=== PATIENT | male | born 1990 | race Caucasian/White ===

== ENCOUNTER → 2024-04-14 15:23 | Outpatient (REF) | payer OTHER, SELFPAY | LOC: RCS 15:23 | PROVIDERS: ATTENDING PHYSICIAN Internal Medicine Cardiovascular Disease; FAMILY PHYSICIAN Internal Medicine | DX: I10 Essential (primary) hypertension (principal) | CPT/HCPCS: 93306 ==

== ENCOUNTER 2025-06-25 23:29 | Inpatient (IN) | payer OTHER, SELFPAY ==
[2025-06-25 16:54] VITALS: BP 136/85
[2025-06-25 17:25] LABS: Urine Character Clear (Clear)
[2025-06-25 17:28] LABS: Hematocrit 44.6 % (39.0-52.0); Hemoglobin 15.1 g/dL (13.0-18.0); Mean Corp Hgb Conc. 33.9 g/dL (33.0-37.0); Mean Corpuscular Volume 85.9 fL (80.0-94.0); Nucleated Red Blood Cells % 0 % (-); Platelet Count 200 10^3/uL (130-400); Red Cell Dist. Width 12.3 % (11.5-14.5)
[2025-06-25 17:44] LABS: ALT (SGPT) 19 U/L (0-50); AST (SGOT) 23 U/L (17-59); Albumin 4.9 g/dl (3.5-5.0); Alkaline Phosphatase 58 U/L (38-126); Blood Urea Nitrogen 17 mg/dl (9-20); Calcium 9.2 mg/dl (8.4-10.2); Carbon Dioxide 27 mmol/L (22-30); Chloride 105 mmol/L (98-107); Glucose 100 mg/dl (70-99); Lipase 182 U/L (23-300); Potassium 4.1 mmol/L (3.5-5.1); Sodium 139 mmol/L (135-145); Total Protein 7.6 g/dl (6.3-8.2); eGFR > 60.00
--- NOTE | 2025-06-25 20:01 | ED.GENMED ---
History of Present Illness
General
Chief Complaint: Abdominal Pain
Source: patient
Exam Limitations: none
Time Seen by Provider: 06/25/25 19:46
History of Present Illness
History of Present Illness:
35yoM with a history of hypertension presenting with his father for evaluation of abdominal pain. Symptoms began yesterday afternoon with a sharp pain in his periumbilical region which went down to his right lower quadrant. He continues to have
pain in today specifically with palpation. He also reports some nausea and decreased appetite. No associated testicular pain, dysuria, constipation, diarrhea, fevers, vomiting. He is worried because his mother recently had appendicitis.
Past History
Past History
ED Past Medical History: None
ED Past Surgical History: None
Social History
Tobacco: Non-smoker
Alcohol: Occasional
Drug: None
Personal: Single
Living: with family
Employment: Employed
Phy Exam
General Physical Exam
General Presentation: well appearing and no apparent distress
General Skin: warm and dry
General Habitus: normal
General Mental: alert
ENT Exam
ENT Exam: normocephalic
Pulmonary Exam
Pulmonary Exam: no respiratory distress
Gastrointestinal Exam
Gastrointestinal Exam: soft, non distended and other (+Tenderness in RLQ and suprapubic region. Abdomen soft, non-distended. No rebound or guarding.)
Neurological Exam
Neurological Exam: alert
Kaveh Coma Scale
Eye Opening: Spontaneous
Verbal Response: Oriented
Motor Response: Obeys Commands
GCS Total Score: 15
Skin Exam
Skin Exam: normal color and warm/dry
Psychiatric Exam
Psychiatric Exam: normal mood/affect
Course
Orders/Labs/Results
Orders:
Orders
06/25/25 Dinner
NPO
Allow oral meds: Yes
Allow clear liquids: No
06/25/25 17:12
Complete Blood Count/With Diff Urgent
Comprehensive Metabolic Panel Urgent
Lipase Urgent
Urinalysis Reflex To Culture Urgent
Date Specimen was Collected: 06/25/25
Time Specimen was Collected: 16:57
06/25/25 20:01
CT Abd/pelvis W Iv Cont Urgent
Comment:
Reason For Exam: RLQ pain
06/25/25 22:31
0.9% Sodium Chloride 1000 ml [Nss] 1,000 ml IV BOLUS
06/25/25 23:04
Code Status As Directed
Resuscitation Status: Full Code
Complete Blood Count/No Diff Routine
Activity As Directed
Activity Level: Out of Bed- Ad Zayda
Vital Signs As Directed
Frequency: Per unit guidelines
06/25/25 23:15
0.9% Sodium Chloride 1000 ml [Nss] 1,000 ml IV 100 mls/hr
06/26/25 06:00
Basic Metabolic Panel IN AM
Abnormal Lab Results
06/25/25
17:12
Glucose 100 H mg/dl
(70-99)
06/25/25 17:12
Vital Signs
Initial and Last Documented VS:
Initial Vital Signs
Temp Pulse Resp BP Pulse Ox
97.5 F 82 16 136/85 99
06/25/25 16:54 06/25/25 16:54 06/25/25 16:54 06/25/25 16:54 06/25/25 16:54
Last Documented Vital Signs
Temp Pulse Resp BP Pulse Ox
97.5 F 82 16 136/85 99
06/25/25 16:54 06/25/25 16:54 06/25/25 16:54 06/25/25 16:54 06/25/25 20:02
MDM/Problems Addressed
Differential Diagnosis Includes:
35yoM here with RLQ pain x 1 day. Associated with nausea. VSS. He is well appearing in no distress. No signs of peritonitis on abdominal exam. Differential diagnosis includes but is not limited to: appendicitis, mesenteric adenitis, colitis,
musculoskeletal
Initial ED plan: Labs obtained in triage are unremarkable including normal white count. Will proceed with CT abdomen. He declines analgesics.
*Pulse Oximetry
SaO2: 99
Oxygen Mode of Delivery: Room air
Patient hypoxic: no (99%)
*Critical Care Note
Total Time (30-74mins, 75-104mins- exclusive of procedures): Not Applicable
Update Note
Update Note:
CT shows findings suspicious for low grade appendicitis. Case discussed with Dr. Reyes who recommends holding off on antibiotics for now. Patient admitted to the general surgery service for further management.
ED Attending Note
-
Portions of this chart may have been created with voice recognition software.� Occasional wrong word or��sound alike� substitutions may have occurred due to the inherent limitations of voice recognition software.
Discharge Plan
Departure
Patient Disposition: Admit
Date of Disposition: 06/25/25
Time of Disposition: 22:25
Presentation/result/management discussed w/ accepting MD/DO: Dr. Reyes
Discharge Problem:
Acute appendicitis
Referrals:
Wilver Ramires MD [Family Provider, Internal Medicine]
Interventions
Interventions:
*Risk Screen - Suicide Last Done: 06/25/25 16:54
*General Assessment Last Done: 06/25/25 20:10
*Neglect/Abuse Screening Last Done: 06/25/25 16:54
*ED COVID-19 Vaccine History Last Done: 06/25/25 20:10
ZM-Rkcvtp-Ilobeawdnt Assessment Last Done: 06/25/25 20:10
Discharge Date and Time
Print Language: [place]
[2025-06-25 20:12] VITALS: BMI 25.0
[2025-06-25] MEDS: NSS 1000 IV (22:39)
[2025-06-25 23:55] VITALS: BP 144/85; BMI 24.3
[2025-06-26] VITALS (8 sets, daily range): BP systolic 106–147; BP diastolic 45–79
[2025-06-26] MEDS: NSS 1000 IV ×2 (00:03→08:45)
--- NOTE | 2025-06-26 00:15 | HP.FOC2 ---
Addendum entered and electronically signed by Fab Reyes MD 06/26/25 14:14:
35-year-old male with PMH of HTN, aortic coarctation (? he described the issue as a 'kink' in his aorta), and seasonal allergies who presented with 2 days of periumbilical pain that migrated to the right lower quadrant, described it as waxing and
waning in severity, not progressive; WBC 6.8, CT showing subtle abnormality of the appendix; I personally reviewed and interpreted this, appendix is dilated with slight periappendiceal inflammation
AFVSS, ABD soft, nondistended, tender to deep palpation in the RLQ, no rebound or guarding
� Suspicious for acute appendicitis; presentation is not completely typical of acute appendicitis, but radiographically the appendix is dilated and congruent with his abdominal exam; explained the treatment options, including surgery to remove the
appendix versus treatment with antibiotics; explained that it is possible we could get in and the appendix appears normal; if this was the case, I would remove the appendix anyway to remove it from the list of possibilities in the future; antibiotic
treatment is effective but has an elevated recurrence risk, about 20% in the first year; after lengthy discussion, the patient elected to proceed with surgery
� Keep n.p.o. with IVF
� Sent coags and type and screen
� Start IV Zosyn until surgery
� Pain control with IV Dilaudid as needed
Original Note:
Focused History & Physical
Chief Complaint
HPI:
Chief Complaint: abdominal pain
HPI / Indication for Planned Procedure:
35 YOM with PMH HTN presents to [facility] ED with abdominal pain that started yesterday afternoon. Reports pain started in his preiumbilca regaion now down to his right lower qudrant. Patient reports pain to be sharp and tender to palpation. Patiend
denies fever, nausea or vomiting associated with the pain. Last BM today in the ED, + flatus. Last PO intake this afternoon prior to coming to ED - had two croissants.
Relevant Past Medical History: Hypertension
Relevant Social History: ETOH (occational)
Relevant Family History: Negative
Relevant Past Surgical History: Negative
Review of Systems
Review of Pertinent Systems: All Systems Negative Except for the Following Positives (reports right lower quadrant tenderness)
Medication
See Medication form for detailed medications: No
Medication List (including Herbals & OTC):
Losartain potassium 25mg PO HS
Medications Reviewed: Yes
Allergies and Reactions
Patient has Allergies: No
Noted Allergies and Reactions:
Allergy/AdvReac Type Severity Reaction Status Date / Time
No Known Allergies Allergy Verified 06/25/25 16:53
Pertinent Physical Exam
All Other Systems: Negative
Head/Neck: Normal
Lungs: Normal
Heart: Normal
Abdomen: Other (right lower quadrant - tender to palpation)
Extremities: Normal
Neurological: Normal
Diagnosis / Assessment
CT ab/pel
IMPRESSION:
Subtle abnormality of the appendix, as described, suspicious for low-grade appendicitis. No perforation or abscess.
Plan / Procedure
Admit under Dr. Reyes service
#abdominial pain - appendicitis
- NPO
- IVF NS 100cc/hr
- prn pain control
#HTN
- continue home medicine.
#dvt prophylaxis - SCD
Code status - FULL
--- NOTE | 2025-06-26 01:15 | PTCARENOTE ---
Pt admitted to 2105 from ED at 2300, aaox3, denies pain, nausea/vomiting. Admission questions completed, NSS infusing at 100ml/hr as per order. labs sent to lab. Pt oriented to surroundings and call light. Updated on POC and in agreement.
[2025-06-26 01:19] LABS: Hematocrit 38.6 % (39.0-52.0); Hemoglobin 12.8 g/dL (13.0-18.0); Mean Corp Hgb Conc. 33.2 g/dL (33.0-37.0); Mean Corpuscular Volume 88.1 fL (80.0-94.0); Platelet Count 177 10^3/uL (130-400); Red Cell Dist. Width 12.1 % (11.5-14.5)
[2025-06-26 01:41] LABS: Blood Urea Nitrogen 17 mg/dl (9-20); Calcium 8.2 mg/dl (8.4-10.2); Carbon Dioxide 26 mmol/L (22-30); Chloride 107 mmol/L (98-107); Estimated Creatinine Clearance 111 ml/min; Glucose 87 mg/dl (70-99); Potassium 4.4 mmol/L (3.5-5.1); Sodium 138 mmol/L (135-145); eGFR > 60.00
[2025-06-26 06:29] LABS: Hematocrit 39.3 % (39.0-52.0); Hemoglobin 13.1 g/dL (13.0-18.0); Mean Corp Hgb Conc. 33.3 g/dL (33.0-37.0); Mean Corpuscular Volume 87.5 fL (80.0-94.0); Platelet Count 163 10^3/uL (130-400); Red Cell Dist. Width 12.1 % (11.5-14.5)
[2025-06-26] MEDS: ZOSYN 50 IV (08:41)
[2025-06-26 09:39] LABS: INR 1.08; PT 14.3 Sec (11.4-14.6)
[2025-06-26 09:40] LABS: APTT 30.9 Sec (23.4-35.0)
--- NOTE | 2025-06-26 13:12 | W.IMMPOSTOP ---
Addendum entered and electronically signed by Fab Reyes MD 06/26/25 13:54:
Updated patient; called father twice (per patient request) but no answer and unable to leave voicemail
Original Note:
Surgical Immed Post Op Note
-
Primary Surgeon: Fab Reyes MD
Assisting Surgeon: NIKKI Angel
Pre-op Diagnosis: Acute appendicitis
Post-op Diagnosis: Acute appendicitis
Procedure Performed: Laparoscopic appendectomy
Anesthesia Type: General
Specimen / Cultures: Appendix
Estimated Blood Loss: 10 mL
Complications: None
Operative Findings: Slightly dilated and mildly injected appendix without any inflammatory adhesions or evidence of perforation; mild adhesions from the base of the cecum to the right lower quadrant; stapled with 45 mm [place] with gold load, staple
line hemostatic; closed fascia of umbilical incision with 0 Vicryl using a suture passer
--- NOTE | 2025-06-26 13:14 | OR.RPT ---
Operative Report
Operative Report
DATE OF OPERATION: 06/26/2025
SURGEON: Fab Reyes MD
PREOPERATIVE DIAGNOSIS: Acute appendicitis
POSTOPERATIVE DIAGNOSIS: Acute non-perforated appendicitis
OPERATION: Laparoscopic appendectomy
ASSISTANTS:
1. NIKKI Angel
ANESTHESIA: General
ESTIMATED BLOOD LOSS: 10 mL
FINDINGS:
1. Appendix appeared dilated and inflamed without evidence of perforation
SPECIMENS:
1. Appendix
DRAINS: None
COMPLICATIONS: No immediate complications.
INDICATIONS: The patient is a 35-year-old male who presented with 2 days of abdominal pain, starting from the periumbilical region and migrating to the right lower quadrant. His WBC was normal and his CT scan showed slightly dilated appendix with
some haziness suggesting inflammation. He was mildly tender in the right lower quadrant. Therefore, I recommended appendectomy. The operation was discussed with the patient in detail, including the risks, benefits and alternatives. Risks described
included, but not limited to, bleeding, infection, damage to nearby structures (i.e., bowel, bladder, epigastric vessels), incorrect diagnosis, more extensive resection than anticipated, conversion to open, and anesthetic risks. The patient
understood and agreed to proceed. The consent was signed and placed in the chart.
PROCEDURE IN DETAIL: The patient was taken to the operating room and placed on the operating table in supine position. Sequential compression devices were placed bilaterally. General anesthesia was induced and the patient was intubated without
complication. The patient was secured to the bed with a seatbelt across the mid thighs, the right arm secured to the armboard and the left arm was tucked. Valenzuela catheter was placed with sterile technique. Anesthesia placed an orogastric tube.
Patient recently received dose of IV Zosyn. The abdomen was shaved, prepped and draped in the usual sterile fashion. A time-out was performed verifying the correct patient, procedure, operative site, positioning, and special equipment.
I made a stab incision with an 11 blade scalpel at Beltran's point. I gained access to the abdomen using a Veress needle. After 3 clicks, the abdomen was insufflated to 12 mmHg. Patient tolerated the insufflation well. I made a curvilinear
incision using electrocautery infraumbilically. I took this down to the subcutaneous tissue with electrocautery and bluntly with a Ольга clamp. Using Optiview and a 5�0 scope, a 5 mm trocar was inserted under direct visualization. The abdomen was
examined and no injury from port placement or Veress needle was identified. I placed a 5 mm trocar in the left lower quadrant under direct visualization, taking care to avoid injury to the epigastric vessels. I switched the umbilical port to a 12
mm Proctor under direct visualization and inflated the balloon with 20 cc of air. I placed a 5 mm trocar in the suprapubic region under direct visualization, taking care to avoid injury to the bladder. The patient was placed in Trendelenburg
position with the right side up.
Two atraumatic graspers were used to sweep the small bowel to the left upper quadrant and identify the cecum, terminal ileum and appendix. The appendix was injected and dilated without any significant inflammatory adhesions or any evidence of
perforation. There were some adhesions from the base of the cecum to the right lower quadrant that were bluntly released. The appendix was grasped and elevated. I created a window at the base of the appendix and ligated the mesoappendix with the
LigaSure. With the appendix freely mobile, I switched to the 5-30 laparoscope and divided the appendix using the 45mm laparoscopic linear cutting stapler with a grossman load. The appendix was placed in an Endocatch bag and placed to the side.
The Aleida trocar was deflated and removed. The appendix was removed and passed off for specimen. Using the suture passing device, the fascia of the umbilical incision was closed with an interrupted 0 Vicryl stitch. The suprapubic port was
removed under direct visualization and no bleeding was noted. The laparoscope and left lower quadrant port were removed and the abdomen was allowed to desufflate. The skin of the ports were closed with 4-0 Monocryl in subcuticular fashion. The
incisions were injected with a total of 30 mL of 0.25% Marcaine with epinephrine and 0.3 mg of dexamethasone. Dermabond was used for dressing. At this point, the procedure was complete. The patient was awoken and extubated without complication. The
valenzuela was removed. All needle, sponge and instrument counts were reported as correct. The patient tolerated the procedure well and was transferred to the recovery room in stable condition.
Of note, NKIKI Angel was necessary for traction, countertraction and exploratory purposes. I was present for the entire duration of the case
DICTATED BY: Fab Reyes MD
[2025-06-26] MEDS: ZOFRAN 4 MG IV (13:44)
--- NOTE | 2025-06-26 14:30 | PTCARENOTE ---
Pt received from the PACU via bed. Pt is AAOx3, HRR, Pt denies nausea, and report minimal pain. VSS, Pt is afebrile. Pt's abd with 4 Lap sites well approx. w/ surgical glue, no drainage noted. Pt instructed on plan of care. Pt verbalized
understanding of instructions. Call ordonez is within reach.
[2025-06-26] MEDS: TYLENOL 1000 MG PO (15:43)
[2025-06-26] MEDS: TYLENOL PO (15:43)
--- NOTE | 2025-06-26 15:51 | W.DS.TRANS ---
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
-
Discharge Instructions:
Discharge Diagnosis/Procedures Acute appendicitis status post laparoscopic
appendectomy
Diet Regular,As tolerated
Activity No strenuous activity
Additional Activity Do not lift over 10 lbs for the next 3-4 weeks
Driving Restrictions No driving for 24 hours
Bathing Restrictions OK to Shower
Wound Care Allow the glue to flake off your incisions on
its own over the next 2-3 weeks. Avoid scrubbing
or picking off. Do not swim or soak in tubs/
pools for 2 weeks.
Instructions:
Stand-Alone Forms:
Changes to Home Medications: No
Discharge Medications:
DC Medications w/original date entered in [facility]
acetaminophen 325 mg tablet 650 mg (2 x 325 mg) PO Q4HPRN PRN mild pain #1 tab 06/26/25
ibuprofen 200 mg tablet 400 - 600 mg (2 - 3 x 200 mg) PO Q6HPRN PRN moderate pain #1 tab 06/26/25
oxycodone 5 mg tablet 5 mg PO Q4HPRN PRN breakthrough/severe pain #8 tabs 06/26/25
Home Medication Changes
Pending Results: No
--- NOTE | 2025-06-26 16:38 | CM ---
Met with patient and significant other at bedside post procedure; they live in a multilevel home; no steps to enter, 13 steps to 2nd floor; patient is independent with ambulation, stairs, and ADLs. NO history of SNF or Home Health. No DME other
than a BP cuff.
Plan: Discharge to home today; no needs
== END 2025-06-26 18:45 | disposition home or self-care (01) | DRG 398 ==
LOC: 2 SOUTH 23:29
PROVIDERS: Emergency Medicine; Nurse Practitioner Family; Nurse Practitioner Gerontology; Registered Nurse; ADMITTING PHYSICIAN Surgery; EMERGENCY PHYSICIAN Emergency Medicine; FAMILY PHYSICIAN Internal Medicine
PROC: 0DTJ4ZZ Resection of Appendix, Percutaneous Endoscopic Approach (ICD-10-PCS; 2025-06-26)
DX: R10.9 Unspecified abdominal pain (principal); K35.80 Unspecified acute appendicitis; I10 Essential (primary) hypertension; J30.2 Other seasonal allergic rhinitis
CPT/HCPCS: 74177; 80048; 80053; 81003; 83690; 85025; 85027; 85610; 85730; 86850; 86900; 86901; 88304; 96360; 99284; Q9967